=== PATIENT | female | born 1960 | race Caucasian/White ===

== ENCOUNTER → 2019-01-22 | Outpatient (CLI) | payer BC ==
--- NOTE | 2019-01-22 11:45 | Diagnostic Imaging Report ---
Exam: Bilateral Knee Series - 3+ views History: Knee pain Comparison: None Findings: Right knee: No acute fracture or dislocation. Anatomic alignment. Small joint effusion. Minimal tricompartmental degenerative changes. Left knee: No acute fracture or dislocation. Anatomic alignment. No joint effusion. Minimal tricompartmental degenerative changes. Impression: No acute osseous injury. 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 Signed by: Rodríguez Arguelles MD on 01/22/2019 11:42 AM
== END ==
LOC: RAD 10:05
PROVIDERS: ATTEND Pain Medicine Pain Medicine
DX: M25.562 Pain in left knee (principal); M25.561 Pain in right knee